=== PATIENT | female | born 1965 | race Two or more races ===

== ENCOUNTER → 2025-01-14 | Outpatient (CLI) | payer MEDICAID, SELFPAY ==
--- NOTE | 2025-01-14 09:15 | XR_ITS ---
Examination: Screening digital mammography, bilateral Computer aided detection 3-D breast Tomosynthesis, bilateral Date and time of exam: January 14, 2025 0909 hours Compared to mammograms dating to December 21, 2017 Indication: Screening Technique: Nonmagnified MLO, CC views of the breasts to been obtained, reconstructed from 3-D Tomosynthesis images. R2 computer aided detection program utilized for evaluation of suspicious masses and/or abnormal calcifications. 3-D Tomosynthesis images obtained. Findings: Scattered areas of fibroglandular density. Benign calcifications. No interval suspicious masses Impression: BI-RADS category II: Benign Findings. Recommend 1 year follow-up mammogram.
== END | disposition home or self-care (01) ==
PROVIDERS: Referring Provider Nurse Practitioner Family; Visit Provider Nurse Practitioner Family
DX: Z12.31 Encounter for screening mammogram for malignant neoplasm of breast (principal); R92.323 Mammographic fibroglandular density, bilateral breasts; R92.1 Mammographic calcification found on diagnostic imaging of breast
CPT/HCPCS: 77063; 77067

== ENCOUNTER 2025-05-11 18:19 | Emergency (ER) | payer MEDICAID, SELFPAY ==
[2025-05-11 18:20] VITALS: BMI 34.0
[2025-05-11 18:27] VITALS: BP 148/86; PULSE 103; RESP 24; TEMP 37.3; O2SAT 96
--- NOTE | 2025-05-11 18:28 | EKG_ITS ---
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
--- NOTE | 2025-05-11 18:35 | XR_ITS ---
EXAMINATION: PA chest single view TECHNIQUE: Upright PA chest single view May 11, 2025, 1836 hours, comparison September 23, 2023 INDICATION: Shortness of breath difficulty breathing today. FINDINGS: Normal heart size Mild opacity in the perihilar basilar regions consistent with early pneumonia Moderate osteopenia IMPRESSION: Early pneumonia in the perihilar basilar regions
--- NOTE | 2025-05-11 18:36 | EDRME_ITS ---
Rapid Medical Screening Exam [facility] Arrival date/time: 05/11/25 18:19 Chief Complaint: Shortness of Breath/Dyspnea Time Seen by Provider: 05/11/25 18:35 Vital signs: Vital Signs Temperature 99.2 F 05/11/25 18:27 Pulse Rate 103 H 05/11/25 18:27 Respiratory Rate 24 H 05/11/25 18:27 Blood Pressure 148/86 H 05/11/25 18:27 Pulse Oximetry (%) 96 05/11/25 18:27 Oxygen Delivery Method Room Air 05/11/25 18:27 [facility] Narrative: Cough x 1 week, shortness of breath and chest pain started today. History of asthma Exam: Bronchitic cough Clinical Impression: cough, chest pain
[2025-05-11] MEDS: ALBUTEROL/IPRATROPIUM (Duoneb) RT SOL 3 ML NEBU 6 ML INH (18:49)
[2025-05-11 18:53] VITALS: PULSE 100; RESP 24; O2SAT 95
--- NOTE | 2025-05-11 18:58 | PD.ASTHM ---
ED Asthma RME/HPI General Chief Complaint: Shortness of Breath/Dyspnea Stated Complaint: COUGH X1 WEEK WITH SOB TODAY Time Seen by Provider: 05/11/25 18:35 Arrival date/time: 05/11/25 18:19 RME / HPI RME / HPI Narrative: Cough x 1 week, shortness of breath and chest pain started today. History of asthma See [facility] for Dr. Pino's HPI Documentation. Exam: Bronchitic cough Impression: cough, chest pain Related Data Home Medications ?Medication ?Instructions ?Recorded ?Confirmed levothyroxine 88 mcg capsule 88 cap PO QDAY 10/09/21 10/20/21 lisinopril 20 mg tablet 20 tab PO QDAY 10/09/21 10/20/21 montelukast 10 mg tablet 10 tab PO QDAY 10/09/21 10/20/21 simvastatin 20 mg tablet (Zocor) 20 mg PO HS 10/09/21 10/20/21 Previous Rx's ?Medication ?Instructions ?Recorded cephalexin 500 mg capsule 500 mg PO QID #28 caps 02/06/23 doxycycline monohydrate 100 mg 100 mg PO BID #10 caps 09/24/23 capsule acetaminophen 300 mg-codeine 30 mg 2 tab PO Q8H PRN pain #20 tabs 05/11/25 tablet albuterol sulfate 90 mcg/actuation 2 puff inhalation Q6H PRN 05/11/25 aerosol inhaler shortness of breath or wheezing #8.5 grams azithromycin 500 mg tablet 500 mg PO QDAY 3 days #3 tabs 05/11/25 (Zithromax TRI-MICHEAL) cefdinir 300 mg capsule 300 mg PO BID #14 caps 05/11/25 prednisone 50 mg tablet 50 mg PO QDAY #3 tabs 05/11/25 Allergies Allergy/AdvReac Type Severity Reaction Status Date / Time No Known Allergies Allergy Verified 05/11/25 18:23 Review of Systems Review of Systems Systems Reviewed: All systems reviewed, normal except as documented Past Medical History Past Medical History CARDIAC: Positive Hypercholesterolemia and Hypertension RESPIRATORY: Positive Asthma Surgical History SURGICAL: Positive Joint Replacement ED Exam Narrative Physical exam: See [facility] for Dr. Pino's Physical Exam Documentation. Course Quality Measures none Orders Category Date Time Status Bedside COVID-19 Antigen Test NOW Care 05/11/25 18:35 Active Bedside Influenza A&B Antigen Test NOW Care 05/11/25 18:36 Active EKG (ED ONLY) *Do not use* NOW Care 05/11/25 18:29 Completed CXR [XR chest 1V] Stat Exams 05/11/25 18:35 Completed EKG (ED Only) Stat Exams 05/11/25 18:28 Draft BNP [B-Type Natriuretic Peptide] Stat Lab 05/11/25 18:35 Ordered CBC Stat Lab 05/11/25 18:35 Ordered CMP [Comprehensive Metabolic Panel] Stat Lab 05/11/25 18:35 Ordered Troponin I Stat Lab 05/11/25 18:35 Ordered Albuterol/Ipratr Rt Gabriela [Duoneb Rt Gabriela] Med 05/11/25 18:36 Discontinued 6 ml INH X1 ONE dexAMETHasone INJ [Decadron Inj] Med 05/11/25 18:36 Discontinued 10 mg PO X1 ONE Vital Signs Vital signs: Vital Signs Temperature 99.2 F 05/11/25 18:27 Pulse Rate 103 H 05/11/25 18:27 Respiratory Rate 24 H 05/11/25 18:27 Blood Pressure 148/86 H 05/11/25 18:27 Pulse Oximetry (%) 96 05/11/25 18:27 Oxygen Delivery Method Room Air 05/11/25 18:27 Asthma MDM Narrative MDM Narrative:: This section includes all my notes and documentations, including HPI, PE, and ED course. Royer Pino MD HPI: 59 y/o female with Asthma, HTN, and Hypercholesterolemia here with 2-week history of worsening cough, productive cough, purulent sputum, and dyspnea. No fever. No other complaints. ROS: All negative except as documented in HPI. Physical Exam: General: Alert and oriented. Hacking cough noted. Eyes: Conjunctivae and lids clear. ENT: No nasal congestion. Pharynx normal. TM normal bilaterally. Neck: Supple. Heart: RRR. Lungs: No respiratory distress. Decreased air movement with rhonchi. Abdomen: Soft and nontender. Normal bowel sounds. No distension. No rebound or guarding. Back: No CVA tenderness. Skin: Warm and dry. Neuro: Alert and oriented X 3. I reviewed all diagnostic test results: My interpretation of the EKG is: Sinus rhythm (100 bpm) with nonspecific ST-T changes. My interpretation of the chest x-ray is infiltrates. Blood/urine tests remarkable for 12.1. Covid/Influenza: Negative. At this point, diagnoses include: Pneumonia Treatment here included: Duoneb Prednisone 60 mg Benadryl 50 mg Two Tylenol #3 Zithromax 500 mg PO Significant improvement noted. Recommended a trial of outpatient treatment. Based on my best medical judgment, made decision no further evaluation or treatment indicated at this time. Patient and son understands and agrees to the discharge instructions customized and printed, see below. Discharge instructions from Dr. Pino: --No physical exertion for 3 days to help rest the lungs. --No smoking or exposure to smoking or pets or dust or cold or humidity. --Zithromax and cefdinir to kill the germs causing the pneumonia. --Prednisone to help decrease the swelling in the airways. --Albuterol 2 puffs every 4-6 hours for 3 days SCHEDULED to help keep the airways open. Then as needed for cough or shortness of breath. --Tylenol with codeine for severe cough. --See a private doctor next week for recheck if not completely better. --Seek immediate medical care with worsening or with any concerns. Royer Pino MD Patient data External records reviewed:: [facility] previous records (Reviewed prior ED records from 09/24/23. Patient was seen for Asthma with exacerbation.) Clinical information provided by:: patient Social determinants that could affect healthcare access:: none Patient has the following chronic illnesses:: Asthma, HTN, and Hypercholesterolemia How is presenting disease/condition affected by chronic disease/condition?: exacerbated by Evaluation data The following diagnostics were reviewed and interpreted by me:: lab results, radiology exam(s) and EKG tracing(s) (My interpretation of the EKG is: Sinus rhythm (100 bpm) with nonspecific ST-T changes. Royer Pino MD) Lab and/or radiology exams considered but not ordered:: None Interpretation Summary: I reviewed all diagnostic test results: My interpretation of the EKG is: Sinus rhythm (100 bpm) with nonspecific ST-T changes. My interpretation of the chest x-ray is infiltrates. Blood/urine tests remarkable for 12.1. Covid/Influenza: Negative. Medications / Prescriptions Medications or Prescriptions considered but not ordered:: None Medication administrations:: Medication Administration History Discontinued Medications Albuterol/Ipratropium (Albuterol/Ipratropium (Duoneb) Rt Gabriela 3 Ml Nebu) 6 ml INH X1 ONE Stop: 05/11/25 18:37 Last Admin: 05/11/25 18:49 Dose: 6 ml Documented By: REBECCA Dexamethasone Sodium Phosphate (Dexamethasone Sod Phos Inj 10 Mg/Ml Vial) 10 mg PO X1 ONE Stop: 05/11/25 18:37 Treatment here included: Duoneb Prednisone 60 mg Benadryl 50 mg Two Tylenol #3 Zithromax 500 mg PO Consultations Consultation(s) initiated? (list below): No Diagnosis Differential diagnosis asthma: Acute exacerbation, Status asthmaticus, Acute asthmatic bronchitis, Pneumonia, COPD exacerbation and Pneumothorax Most likely diagnosis given after review of the tests above:: Pneumonia Admission Indicated Admission indicated?: not indicated Explain why admission is indicated or not indicated:: With significant improvement and no condition needing emergent intervention, there was no indication for admission. Admission Request Was there a request for admission?: No Disposition Plan Disposition Plan: Discharge Discharge Attestation Discharge Attestation: The patient and all family members were given an opportunity to ask questions and understood the discharge instructions. Discharge instructions specifically effects, indications for sooner follow up or return to the emergency department, and the expected course of current diagnosis. Patient condition: Stable Discharge Plan Plan Patient Disposition: HOME (Self Care) Prescriptions/Referrals Prescriptions/Med Rec: New acetaminophen-codeine 300-30 mg tablet 2 tab PO Q8H MDD 6 PRN (Reason: pain) Qty: 20 0RF prednisone 50 mg tablet 50 mg PO QDAY Qty: 3 0RF albuterol sulfate 90 mcg/actuation HFA aerosol inhaler 2 puff inhalation Q6H PRN (Reason: shortness of breath or wheezing) Qty: 8.5 0RF cefdinir 300 mg capsule 300 mg PO BID Qty: 14 0RF azithromycin [Zithromax TRI-MICHEAL] 500 mg tablet 500 mg PO QDAY 3 Days Qty: 3 0RF No Action lisinopril 20 mg tablet 20 tab PO QDAY simvastatin [Zocor] 20 mg tablet 20 mg PO HS Patient Comments: RAJ ARREDONDO TABLETA POR V A ORAL AL ACOSTARSE montelukast 10 mg tablet 10 tab PO QDAY Patient Comments: TOME WALTER TABLETA TODOS LOS D levothyroxine 88 mcg capsule 88 cap PO QDAY Patient Comments: TAKE 1 CAPSULE BY MOUTH IN THE MORNING ON AN EMPTY STOMACH ONCE A DAY 90 DAYS cephalexin 500 mg capsule 500 mg PO QID Qty: 28 0RF doxycycline monohydrate 100 mg capsule 100 mg PO BID Qty: 10 0RF Problem List Clinical Impression: Pneumonia Patient/Caregiver Discharge Instructions Discharge Activity: activity as tolerated Education Materials: ED Pneumonia (Adult) Additional Instructions: Instrucciones de cathleen del Dr. Pino: --Evitar el esfuerzo f?sico maggie 3 d?as para favorecer el descanso de los pulmones. --Evitar fumar, la exposici?n al humo del tabaco, a mascotas, al polvo, al fr?o y a la humedad. --Ezequiel Zithromax y cefdinir para eliminar los g?rmenes que causan la neumon?a. --Ezequiel prednisona para ayudar a disminuir la inflamaci?n de las v?as respiratorias. --Administrar dos inhalaciones de albuterol cada 4 a 6 horas maggie 3 d?as (seg?n lo programado) para mantener las v?as respiratorias abiertas. Luego, usar seg?n sea necesario para la tos o la dificultad para respirar. --Ezequiel Tylenol con code?na para la tos intensa. --Consultar con un m?dico particular la pr?xima semana para walter revisi?n si no se siente completamente recuperado. --Buscar atenci?n m?dica de inmediato si los s?ntomas empeoran o si tiene alguna inquietud. Discharge instructions from Dr. Pino: --No physical exertion for 3 days to help rest the lungs. --No smoking or exposure to smoking or pets or dust or cold or humidity. --Zithromax and cefdinir to kill the germs causing the pneumonia. --Prednisone to help decrease the swelling in the airways. --Albuterol 2 puffs every 4-6 hours for 3 days SCHEDULED to help keep the airways open. Then as needed for cough or shortness of breath. --Tylenol with codeine for severe cough. --See a private doctor next week for recheck if not completely better. --Seek immediate medical care with worsening or with any concerns. Print Language: South African Stand Alone Forms: [employer] Award Info., Patient Portal Info Letter
[2025-05-11 19:21] LABS: Base Excess, Venous -1 (-3-3); O2 Saturation, Venous 89 % (96-97); PCO2, Venous 37 mmHg (36-56); PO2, Venous 51 mmHg (15-58); pH, Venous 7.41 (7.33-7.66)
[2025-05-11 19:22] LABS: Basophils # (Auto) 0.0 Thou/mm3 (0.0-0.2); Basophils % (Auto) 0 % (0-2.5); Eosinophils # (Auto) 0.3 Thou/mm3 (0.0-0.5); Eosinophils % (Auto) 3 % (0-10); Hematocrit 37.5 % (36.0-46.0); Hemoglobin 12.8 g/dL (12.0-16.0); Immature Granulocytes Auto 0.05 Thou/mm3 (0.00-0.00); Lymphocytes # (Auto) 2.7 Thou/mm3 (1.0-4.8); Lymphocytes % (Auto) 22 % (10-50); Mean Corpuscular HGB Conc 34.1 g/dl (31.0-37.0); Mean Corpuscular Hemoglobin 29.2 pg (25.0-35.0); Mean Corpuscular Volume 85 fL (80-100); Monocytes # (Auto) 0.6 Thou/mm3 (0.0-0.8); Monocytes % (Auto) 5 % (0-12); Neutrophils # (Auto) 8.4 Thou/mm3 (1.8-7.7); Neutrophils % (Auto) 69 % (37-80); Nucleated Red Blood Cell # 0.00 Thou/mm3 (0.00-0.00); Nucleated Red Blood Cell % 0 /100 WBC (0); Platelet Count 292 Thou/mm3 (140-440); RDW Standard Deviation 40.5 fL (36.4-46.3); Red Blood Count 4.39 Miln/mm3 (4.00-5.20); White Blood Count 12.1 Thou/mm3 (3.6-11.0)
[2025-05-11 19:38] LABS: B-Type Natriuretic Peptide < 20 pg/mL (0-100)
[2025-05-11 19:40] LABS: D-Dimer 1250 ng/mL (<600)
[2025-05-11] MEDS: AZITHROMYCIN 250 MG TABLET 500 MG PO (19:42)
[2025-05-11 19:43] LABS: Alanine Aminotransferase 40 U/L (10-49); Albumin, Serum 4.7 gm/dL (3.4-4.8); Albumin/Globulin Ratio 1.5 (1.2-2.2); Alkaline Phosphatase 86 U/L (46-116); Anion Gap 10 (7-16); Aspartate Amino Transferase 25 U/L (0-34); BUN/Creatinine Ratio 20 Ratio (12-20); Bilirubin,Direct 0.2 mg/dL (0.0-0.3); Bilirubin,Total 0.5 mg/dL (0.3-1.2); Blood Urea Nitrogen 14 mg/dL (9-23); Calcium 9.3 mg/dL (8.3-10.6); Calcium (Corrected) 9.3 mg/dL (8.5-10.1); Carbon Dioxide 22.2 mMol/L (20.0-31.0); Chloride 108 mMol/L (98-107); Creatinine (Component) 0.7 mg/dL (0.6-1.3); Estimated Creatinine Clearance 81.7 mL/min (>60); Globulin 3.1 gm/dL (2.3-3.5); Glucose 115 mg/dL (74-106); Magnesium 1.8 mg/dL (1.6-2.6); Osmolality,Calculated 280 (275-295); Potassium 3.5 mMol/L (3.4-5.1); Sodium 140 mMol/L (136-145); Thyroid Stimulating Hormone 1.55 uIU/mL (0.55-4.78); Total Protein 7.8 gm/dL (5.7-8.2); Troponin I < 0.002 ng/mL (0.0-0.045); eGFR > 60 See Note
[2025-05-11 20:06] LABS: Collection Type, Urine Clean Catch
[2025-05-11] MEDS: ACETAMINOPHEN w/COD 300-30 TABLET 2 TAB PO (20:10)
[2025-05-11 20:17] LABS: Bilirubin,Urine Negative (Negative); Blood,Urine Negative (Negative); Clarity,Urine Clear (Clear/Hazy); Color,Urine Colorless (Lt Yel-Yel); Culture Indicated,Urine Not Indicated; Glucose, Urine Negative (Negative); Ketones,Urine Negative (Negative); Leukocyte Esterase,Urine Positive (Negative); Nitrite,Urine Negative (Negative); PH,Urine 6.0 (5.0-7.0); Protein,Urine Negative (Neg - Trace); RBC,Urine 2 /hpf (0-3); Specific Gravity,Urine 1.014 (1.001-1.035); Squamous Epithelial Cell,Urine 3 /hpf (0-5); Urobilinogen,Urine Negative mg/dL (0.0-1.0); WBC,Urine 2 /hpf (0-5)
== END 2025-05-11 20:25 | disposition home or self-care (01) ==
LOC: SERX 20:36
PROVIDERS: Physician Assistant; Emergency Provider Emergency Medicine; PCP Nurse Practitioner Family
DX: J18.9 Pneumonia, unspecified organism (principal); R00.0 Tachycardia, unspecified; I10 Essential (primary) hypertension; E78.00 Pure hypercholesterolemia, unspecified
CPT/HCPCS: 36415; 71045; 80053; 81001; 82248; 82803; 83735; 83880; 84443; 84484; 85025; 85379; 87502; 87635; 93005; 94640; 99283; A9270; J1100; J7512

== ENCOUNTER 2025-05-16 19:31 | Emergency (ER) | payer MEDICAID, SELFPAY ==
[2025-05-16 20:06] VITALS: BP 143/85; PULSE 61; RESP 18; TEMP 36.6; O2SAT 96; BMI 34.3
--- NOTE | 2025-05-16 20:18 | EKG_ITS ---
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
--- NOTE | 2025-05-16 20:44 | XR_ITS ---
EXAMINATION: PA chest single view TECHNIQUE: Upright PA chest single view Date and time: May 16, 2025, 2102 hours, comparison May 11, 2025 INDICATION: Chest pain shortness of breath today. FINDINGS: No current pneumonia Normal heart size Ectatic thoracic aorta Moderate osteopenia IMPRESSION: No current pneumonia
--- NOTE | 2025-05-16 20:44 | XR_ITS ---
Examination: Abdomen sonogram, Limited Date and time of exam: May 16, 2025, 2159 hours INDICATIONS: Epigastric pain today. Technique: Real-time ortiz scale transabdominal sonographic images of the upper abdomen obtained. Findings: Absent gallbladder Enlarged common bile duct 1.4 cm no definite stone Pancreatic head 2.5 cm Liver 16.7 cm fatty infiltration Normal hepatopetal portal venous flow Patent IVC IMPRESSION: Abnormally enlarged common bile duct, consider MRCP follow-up to exclude common bile duct stones and/or stricture
--- NOTE | 2025-05-16 20:45 | EDRME_ITS ---
Rapid Medical Screening Exam [facility] Arrival date/time: 05/16/25 19:31 59F with history of HTN and asthma presents to ED with RUQ/epigastric pain and N/V after she took some Tylenol #3 that was recently prescribed during her visit where she was diagnosed with CAP. Chief Complaint: Abdominal Pain Vital signs: Vital Signs Temperature 98 F 05/16/25 20:06 Pulse Rate 61 05/16/25 20:06 Respiratory Rate 18 05/16/25 20:06 Blood Pressure 143/85 H 05/16/25 20:06 Pulse Oximetry (%) 96 05/16/25 20:06 Oxygen Delivery Method Room Air 05/16/25 20:06 Exam: Mild RUQ/epigastric tenderness Clinical Impression: Gastritis vs drug adverse effects vs biliary disease vs PNA vs pancreatitis vs ab pain
[2025-05-16 21:17] LABS: Basophils # (Auto) 0.1 Thou/mm3 (0.0-0.2); Basophils % (Auto) 1 % (0-2.5); Eosinophils # (Auto) 0.4 Thou/mm3 (0.0-0.5); Eosinophils % (Auto) 3 % (0-10); Hematocrit 35.7 % (36.0-46.0); Hemoglobin 11.8 g/dL (12.0-16.0); Immature Granulocytes Auto 0.13 Thou/mm3 (0.00-0.00); Lymphocytes # (Auto) 5.4 Thou/mm3 (1.0-4.8); Lymphocytes % (Auto) 43 % (10-50); Mean Corpuscular HGB Conc 33.1 g/dl (31.0-37.0); Mean Corpuscular Hemoglobin 28.5 pg (25.0-35.0); Mean Corpuscular Volume 86 fL (80-100); Monocytes # (Auto) 0.8 Thou/mm3 (0.0-0.8); Monocytes % (Auto) 6 % (0-12); Neutrophils # (Auto) 5.9 Thou/mm3 (1.8-7.7); Neutrophils % (Auto) 47 % (37-80); Nucleated Red Blood Cell # 0.00 Thou/mm3 (0.00-0.00); Nucleated Red Blood Cell % 0 /100 WBC (0); Platelet Count 309 Thou/mm3 (140-440); RDW Standard Deviation 41.9 fL (36.4-46.3); Red Blood Count 4.14 Miln/mm3 (4.00-5.20); White Blood Count 12.7 Thou/mm3 (3.6-11.0)
[2025-05-16 21:36] LABS: Alanine Aminotransferase 141 U/L (10-49); Albumin, Serum 4.1 gm/dL (3.4-4.8); Albumin/Globulin Ratio 1.3 (1.2-2.2); Alkaline Phosphatase 127 U/L (46-116); Anion Gap 10 (7-16); Aspartate Amino Transferase 249 U/L (0-34); BUN/Creatinine Ratio 21 Ratio (12-20); Bilirubin,Total 0.4 mg/dL (0.3-1.2); Blood Urea Nitrogen 17 mg/dL (9-23); Calcium 9.5 mg/dL (8.3-10.6); Calcium (Corrected) 9.5 mg/dL (8.5-10.1); Carbon Dioxide 25.1 mMol/L (20.0-31.0); Chloride 107 mMol/L (98-107); Creatinine (Component) 0.8 mg/dL (0.6-1.3); Estimated Creatinine Clearance 66.2 mL/min (>60); Globulin 3.2 gm/dL (2.3-3.5); Glucose 139 mg/dL (74-106); Lipase 50 U/L (12-53); Osmolality,Calculated 286 (275-295); Potassium 4.0 mMol/L (3.4-5.1); Sodium 142 mMol/L (136-145); Total Protein 7.3 gm/dL (5.7-8.2); Troponin I < 0.002 ng/mL (0.0-0.045); eGFR > 60 See Note
[2025-05-16] MEDS: FAMOTIDINE 20 MG TABLET 40 MG PO (22:17)
[2025-05-16] MEDS: ONDANSETRON ODT 4 MG TABRAP PO (22:18)
[2025-05-17] VITALS: BP 142/90; PULSE 57; RESP 19; TEMP 36.6; O2SAT 96
--- NOTE | 2025-05-17 | XR_ITS ---
MRI abdomen, without contrast. MRCP Date and time of exam: May 17, 2025, 0823 hours INDICATIONS: Upper abdominal pain epigastric pain today, abnormal enlarged common bile duct 14 mm on gallbladder sonogram today Technique: Multiple axial and coronal images of the abdomen have been obtained with the Siemens 1.5T MRI scanner. Images obtained included T1 weighted transverse images, T2-weighted transverse images, T2-weighted transverse images fat-suppressed, T2 weighted haste fat suppressed transverse images, T1 weighted images, in and out of phase images, T2-weighted coronal images, breath hold, T2 weighted haze coronal images as well as T2 weighted coronal thick slab images, MRCP. Findings: Intrahepatic biliary tract dilatation Absent gallbladder Abnormal common hepatic duct, 14 mm Abrupt truncation of the distal common bile duct coronal image 17, consider impacted 8 mm stone or malignant stricture No pancreatic mass or dilated pancreatic duct Spleen is not enlarged Numerous tiny renal cysts, no hydronephrosis No ascites Aorta normal size IMPRESSION: Abnormal extrahepatic biliary tract dilatation, common hepatic duct 14 mm, suspicious for impacted 8 mm stone or malignant stricture in the distal common bile duct, recommend ERCP follow-up
--- NOTE | 2025-05-17 02:36 | PD.EDABDPN ---
ED Abdominal Pain RME/HPI General Chief Complaint: Abdominal Pain Stated complaint: RIGHT UPPER ABD PAIN Time seen by provider: 05/16/25 21:03 Arrival date/time: 05/16/25 19:31 RME / HPI RME / HPI narrative: 05/16/25 19:31 59F with history of HTN and asthma presents to ED with RUQ/epigastric pain and N/V after she took some Tylenol #3 that was recently prescribed during her visit where she was diagnosed with CAP. DR. ROBERSON MAIN ED EVALUATION: 59 y/o female with SHx of Cholecystectomy and Hx of Type II DM, HLD, HTN, and recent PNA presents to ED c/o RUQ abdominal pain x 1 day. Patient 1 dose left of ABX regimen for PNA and reports resolved cough. Denies nausea, fever, and vomiting. Also denies dysuria. Denies drug or alcohol use. Exam: Mild RUQ/epigastric tenderness Impression: Gastritis vs drug adverse effects vs biliary disease vs PNA vs pancreatitis vs ab pain Related Data Home Medications ?Medication ?Instructions ?Recorded ?Confirmed levothyroxine 88 mcg capsule 88 cap PO QDAY 10/09/21 10/20/21 lisinopril 20 mg tablet 20 tab PO QDAY 10/09/21 10/20/21 montelukast 10 mg tablet 10 tab PO QDAY 10/09/21 10/20/21 simvastatin 20 mg tablet (Zocor) 20 mg PO HS 10/09/21 10/20/21 Previous Rx's ?Medication ?Instructions ?Recorded cephalexin 500 mg capsule 500 mg PO QID #28 caps 02/06/23 doxycycline monohydrate 100 mg 100 mg PO BID #10 caps 09/24/23 capsule acetaminophen 300 mg-codeine 30 mg 2 tab PO Q8H PRN pain #20 tabs 05/11/25 tablet albuterol sulfate 90 mcg/actuation 2 puff inhalation Q6H PRN 05/11/25 aerosol inhaler shortness of breath or wheezing #8.5 grams cefdinir 300 mg capsule 300 mg PO BID #14 caps 05/11/25 prednisone 50 mg tablet 50 mg PO QDAY #3 tabs 05/11/25 Allergies Allergy/AdvReac Type Severity Reaction Status Date / Time No Known Allergies Allergy Verified 05/16/25 19:32 Review of Systems Review of Systems Systems Reviewed: All systems reviewed, normal except as documented Past Medical History Past Medical History CARDIAC: Positive Hypercholesterolemia and Hypertension RESPIRATORY: Positive Asthma ENDOCRINE: Positive Diabetes Mellitus Type 2 Surgical History SURGICAL: Positive Joint Replacement and Hx Cholecystectomy ED Exam Narrative Physical exam: GEN. APPEARANCE: The patient is alert awake oriented X-3 in no distress, comfortable, does not look ill/toxic. Patient has good eye contact. Patient is cooperative. VITALS: All vitals were reviewed and the pulse ox is 96% on room air which is normal according to my interpretation. HEENT: Normocephalic, atraumatic. Pupils are equal and reactive. Oral mucosa is moist. Patent Nares NECK: Supple, nontender, no thyromegaly, no meningismus, no JVD CHEST: Symmetrical, atraumatic, and with equal expansion , Nontender on palpation no deformity and no crepitus. CARDIOVASCULAR: Heart regular rhythm no murmur or gallop rub or extra beats. LUNGS: Clear to auscultation bilaterally with symmetrical chest rise. No laboring tachypnea or wheezing. No intercostal subcostal retraction. No rales and no rhonchi. ABDOMEN: Soft, flat, nontender to palpation, no guarding or rebound tenderness. There are no abnormal masses palpated. Active and normal bowel sounds. EXTREMITIES: Nontender. No edema. No cyanosis. Patient is able to move all 4 extremities well, with full ROM and good CSM. SKIN: Warm and dry, no jaundice or rashes noted. NEURO: There is no focal neurologic deficits noted. GCS is 15, PNS and ELECTRICAL MECHANICAL TECHNICIAN appear grossly intact. PSYCHIATRIC: Patient is in normal mood and affect. Course Course Course Narrative: 0600: Care assumed by Dr. Kwon (emergency physician). Past medical, surgical, social and family history reviewed. Vitals and home medications reviewed. Results and treatment plan discussed. They will assume the care of the patient at this time and will follow the patient, pending MRCP. Quality Measures none Orders Category Date Time Status EKG (ED ONLY) *Do not use* NOW Care 05/16/25 20:18 Completed MRI Screening NOW Care 05/17/25 02:37 Completed Referral - Content Architect Stat Cons 05/17/25 11:12 Active EKG (ED Only) Stat Exams 05/16/25 20:18 Draft MR MRCP Stat Exams 05/17/25 Completed US gall bladder Stat Exams 05/16/25 20:44 Completed XR chest 1V portable Stat Exams 05/16/25 20:44 Completed CBC Stat Lab 05/16/25 21:00 Completed Comprehensive Metabolic Panel Stat Lab 05/16/25 21:00 Completed Lipase Stat Lab 05/16/25 21:00 Completed Troponin I Stat Lab 05/16/25 21:00 Completed Famotidine [Pepcid] Med 05/16/25 20:44 Discontinued 40 mg PO X1 ONE Ondansetron Odt [Zofran Odt] Med 05/16/25 20:44 Discontinued 4 mg PO X1 ONE Vital Signs Vital signs: Vital Signs Temperature 98 F 05/16/25 20:06 Pulse Rate 61 05/16/25 20:06 Respiratory Rate 18 05/16/25 20:06 Blood Pressure 143/85 H 05/16/25 20:06 Pulse Oximetry (%) 96 05/16/25 20:06 Oxygen Delivery Method Room Air 05/16/25 20:06 Abdominal Pain MDM MDM Narrative MDM Narrative:: Scribe Attestation: Saundra Hendrix am scribing for and in the presence of Dr. Roberson. Provider Notation: Although this document has been carefully reviewed, there may still be some phonetic and other typographical errors. These errors are purely grammatical due to imperfections in the software program and should not be construed in any way to compromise the substance of the patient's medical care during this visit. Patient is a 59-year-old female is in the emergency room with concerns for abdominal pain. Vital signs and exam as listed Labs with evidence of leukocytosis 12.7, no left shift, hemoglobin 11.8 at patient's baseline. No acute electrolyte abnormality however patient does have a transaminitis, AST 249, ALT 140 upon, normal alk phos. T. bili normal. Lipase normal. Prior LFTs normal. Right upper quadrant ultrasound with evidence of an abnormally large common bile duct, concerning for possible obstruction or stricture. Ordered MRCP. Chest x-ray unremarkable. Troponin not elevated. EKG performed today at 2028. Imaging with evidence of enlarged CBD 14mm. Will order MRCP and sign out to oncoming provider Dr. Kwon Patient data External records reviewed:: [facility] previous records (Reviewed prior ED records from 05/11/25. Patient was seen for Pneumonia.) Clinical information provided by:: patient Social determinants that could affect healthcare access:: none Patient has the following chronic illnesses:: Hypercholesterolemia, Hypertension, Asthma, Diabetes Mellitus Type 2 How is presenting disease/condition affected by chronic disease/condition?: exacerbated by Evaluation data The following diagnostics were reviewed and interpreted by me:: lab results, radiology exam(s) and EKG tracing(s) (EKG done at xxxx, bpm, normal intervals, non-specific T-wave changes, not a cardiac alert. - Interpreted by Dr. Karen Roberson.) Lab and/or radiology exams considered but not ordered:: None Interpretation Summary: RADIOLOGY Gallbladder US: Findings: Absent gallbladder Enlarged common bile duct 1.4 cm no definite stone Pancreatic head 2.5 cm Liver 16.7 cm fatty infiltration Normal hepatopetal portal venous flow Patent IVC IMPRESSION: Abnormally enlarged common bile duct, consider MRCP follow-up to exclude common bile duct stones and/or stricture Chest X-Ray: FINDINGS: No current pneumonia Normal heart size Ectatic thoracic aorta Moderate osteopenia IMPRESSION: No current pneumonia Medications / Prescriptions Medications or Prescriptions considered but not ordered:: None Medication administrations:: Medication Administration History Discontinued Medications Famotidine (Famotidine 20 Mg Tablet) 40 mg PO X1 ONE Stop: 05/16/25 20:45 Last Admin: 05/16/25 22:17 Dose: 40 mg Documented By: PIPPA Ondansetron HCl (Ondansetron Odt 4 Mg Tabrap) 4 mg PO X1 ONE; Protocol Stop: 05/16/25 20:45 Last Admin: 05/16/25 22:18 Dose: 4 mg Documented By: PIPPA See above if any. Consultations Consultation(s) initiated? (list below): No Diagnosis Differential diagnosis abdominal pain: abdominal pain and other (CBD dilatation, Cirrhosis, GERD) Most likely diagnosis given after review of the tests above:: Epigastric pain, Common bile duct dilation, Transaminitis Admission Indicated Admission indicated?: not indicated Explain why admission is indicated or not indicated:: Patient pending MRCP in the AM. Admission Request Was there a request for admission?: No Disposition Plan Disposition Plan: other (specify) (Signed out to Dr. Kwon at 6 AM.) Discharge Plan Plan Patient Disposition: [facility] Being Transferred to: [facility] Service Needed for Transfer: Gastroenterology Patient condition on transfer: Stable Prescriptions/Referrals Prescriptions/Med Rec: No Action lisinopril 20 mg tablet 20 tab PO QDAY simvastatin [Zocor] 20 mg tablet 20 mg PO HS Patient Comments: TOME MARIA ELENA TABLETA POR V A ORAL AL ACOSTARSE montelukast 10 mg tablet 10 tab PO QDAY Patient Comments: TOME MARIA ELENA TABLETA TODOS LOS D levothyroxine 88 mcg capsule 88 cap PO QDAY Patient Comments: TAKE 1 CAPSULE BY MOUTH IN THE MORNING ON AN EMPTY STOMACH ONCE A DAY 90 DAYS cephalexin 500 mg capsule 500 mg PO QID Qty: 28 0RF doxycycline monohydrate 100 mg capsule 100 mg PO BID Qty: 10 0RF acetaminophen-codeine 300-30 mg tablet 2 tab PO Q8H MDD 6 PRN (Reason: pain) Qty: 20 0RF prednisone 50 mg tablet 50 mg PO QDAY Qty: 3 0RF albuterol sulfate 90 mcg/actuation HFA aerosol inhaler 2 puff inhalation Q6H PRN (Reason: shortness of breath or wheezing) Qty: 8.5 0RF cefdinir 300 mg capsule 300 mg PO BID Qty: 14 0RF Referrals: No Primary/Family,Physician [Primary Care Provider] - In 1 week Problem List Clinical Impression: Epigastric pain, Common bile duct dilation, Transaminitis Patient/Caregiver Discharge Instructions Print Language: Tongan Stand Alone Forms: [employer] Award Info., Patient Portal Info Letter
[2025-05-17 10:42] VITALS: BP 132/82; PULSE 59; RESP 18; TEMP 36.7; O2SAT 96
--- NOTE | 2025-05-17 11:15 | PD.EDADDENDU ---
Emergency Room Addendum <Sruthi Matthew - Last Filed: 05/17/25 14:07> Addendum Narrative: 0600: Care assumed from Dr. Roberson, the previous shift emergency physician. Past medical, surgical, social and family history reviewed. Vitals and home medications reviewed. I will assume the care of the patient at this time, pending MRCP. Please refer to the emergency department record for history and examination from initial visit.?The following addendum documentation note is intended to reflect any pending information, findings, or radiology results not included in the patient?s initial chart. MRCP reports shows Abnormal extrahepatic biliary tract dilatation, common hepatic duct 14 mm, suspicious for impacted 8 mm stone or malignant stricture in the distal common bile duct, recommend ERCP follow-up . 1112h: I spoke with GI Dr. Wynn. Discussed patients PMHx, HPI, ED course, exam findings, labs, and radiology results. He recommends transferring. 1143h: I spoke with transfer nurse with the [facility]. Discussed patients PMHx, HPI, ED course, exam findings, labs, and radiology results. Will present the case to their GI team. 1150h: I spoke with transfer nurse at [facility]. Discussed patients PMHx, HPI, ED course, exam findings, labs, and radiology results. She was unable to get ahold of their GI specialist and will call back once available. 1210h: Patient has been accepted by GI Dr. Arias at [facility]. <Lupe Kwon MD - Last Filed: 05/17/25 17:06> Addendum Narrative: 0600: Care assumed from Dr. Roberson, the previous shift emergency physician. Past medical, surgical, social and family history reviewed. Vitals and home medications reviewed. I will assume the care of the patient at this time, pending MRCP. Please refer to the emergency department record for history and examination from initial visit.?The following addendum documentation note is intended to reflect any pending information, findings, or radiology results not included in the patient?s initial chart. MRCP reports shows Abnormal extrahepatic biliary tract dilatation, common hepatic duct 14 mm, suspicious for impacted 8 mm stone or malignant stricture in the distal common bile duct, recommend ERCP follow-up . 1112h: I spoke with GI Dr. Wynn. Discussed patients PMHx, HPI, ED course, exam findings, labs, and radiology results. He recommends transferring. 1143h: I spoke with transfer nurse with the [facility]. Discussed patients PMHx, HPI, ED course, exam findings, labs, and radiology results. Will present the case to their GI team. 1150h: I spoke with transfer nurse at [facility]. Discussed patients PMHx, HPI, ED course, exam findings, labs, and radiology results. She was unable to get ahold of their GI specialist and will call back once available. 1210h: Patient has been accepted by GI Dr. Arias at [facility]. Diagnosis:Common bile duct obstruction, RUQ abdominal pain Dispo: Transfer to [facility]
--- NOTE | 2025-05-17 11:27 | PC.CC ---
Addendum entered by Anisha Estevez RN 05/17/25 12:48: 1247: called Lakeshia at [facility] to inform her of transport rock picker eta Addendum entered by Anisha Estevez RN 05/17/25 12:45: 1245: transport arranged for a 1500 rock picker 1230: transfer packet w/ 1CD and handoff report given to CN NICOLE Hernandez. 1226: Dr. Kwon spoke to the patient and family about the transfer, pt is agreeable to transfer. 1215: initially went into the room for consent to transfer, however patient and family unaware of transfer. Informed Dr Kwon that they would like an update. Addendum entered by Anisha Estevez RN 05/17/25 12:08: 1159: Called [facility], spoke to Shona to cancel transfer request. Transfer packet and CD X1 created. Call report to [phone]. 1156: called Lakeshia back to inform her no gastric bypass and no blood thinners. Dr Arias accepts patient ED TO ED. Mariaa made aware. 1155: spoke to [facility] bedside nurse, she confirmed that patient denies having a gastric bypass and is not on blood thinners. 1153: Lakeshia called back, she presented the case to Dr. Arias GI. He requests confirmation that the patient has not had a gastric bypass and is not blood thinners. Addendum entered by Anisha Estevez RN 05/17/25 11:53: 1145: Lakeshia w/ [facility] called back, transfer request initiated. She spoke to Dr. Kwon for Emtala questions. She attempted to connect Dr. Arias however he was not available. Lakeshia will call back for the peer to peer when he is avail. 1141: Elisabeth spoke to Dr Kwon for the EMTALA questions. She will present to GI and call back with determination 1137: called [facility], spoke to Elisabeth to initiate transfer. 1136: called [facility], left VM Original Note: received transfer order for GI for ERCP for Abnormal extrahepatic biliary tract dilatation, common hepatic duct 14 mm, suspicious for impacted 8 mm stone or malignant stricture in the distal common bile duct. Clinicals and imaging sent to [facility].
[2025-05-17 12:02] VITALS: BP 151/88; PULSE 65; RESP 18; TEMP 36.7; O2SAT 97
== END 2025-05-17 13:59 | disposition short-term general hospital (02) ==
PROVIDERS: Physician Assistant; Emergency Provider Family Medicine
DX: K83.1 Obstruction of bile duct (principal); R10.13 Epigastric pain; R07.9 Chest pain, unspecified; R06.02 Shortness of breath; R94.31 Abnormal electrocardiogram [ECG] [EKG]; I10 Essential (primary) hypertension; E78.00 Pure hypercholesterolemia, unspecified
CPT/HCPCS: 36415; 71045; 74181; 76705; 80053; 83690; 84484; 85025; 93005; 99284; Q0162; A9270